=== PATIENT | female | born 1980 | race African-American/Black ===

== ENCOUNTER 2020-01-04 10:27 | Emergency (ER) | payer BC ==
[~2020-01-04 10:27] MED LIST: Iopamidol-370 76% 500 ML 1 ML ONE
[2020-01-04 11:36] LABS: Bacteria/HPF None Seen HPF (None Seen); Bilirubin Negative (Negative); Blood, Urine Negative (Negative); Clarity Clear (Clear); Glucose, Urine (Dipstick) Normal (Negative); Ketone, Urine Negative (Negative); Leukocyte Negative Leu/uL (Negative); Nitrite Negative (Negative); Protein, Urine (Dipstick) 30 mg/dL (Neg-Trace); RBC/HPF 0-3 HPF (0-3); Specific Gravity, Urine 1.031 (1.002-1.036); Squamous Epithelial 0-3 HPF (0-3); WBC/HPF 0-3 HPF (0-3)
[2020-01-04 11:37] LABS: Pregnancy Test - Urine (BHCG) Negative (Negative); Pregu Control Background? CLEAR/WHITE (CLR/WHITE); Pregu Control Bar Appear? YES (CONTROL BAR); Specific Gravity 1.031 (1.002-1.036)
[2020-01-04 11:37] LABS: #Lymphocytes 1.9 thou/uL (1.20-3.40); #Monocytes 0.6 thou/uL (0.11-0.59); #Neutrophils 12.8 thou/uL (1.40-6.50); %Basophils 0.2 % (0.0-1.0); %Eosinophils 0.1 % (0.0-10.0); %Lymphocytes 12.1 % (21.0-51.0); %Monocytes 4.2 % (0.0-10.0); %Neutrophils 83.5 % (42.0-75.0); Hemoglobin 11.8 g/dL (12.0-16.0); Mean Corpuscular HGB CONC 32.9 g/dL (32.0-36.0); Mean Corpuscular Hemoglobin 28.1 pg (27.0-31.0); Mean Corpuscular Volume 85.2 fL (78.0-98.0); Mean Platelet Volume 9.9 fL (7.4-10.4); Platelet Count 206 thou/uL (130-400); Red Blood Cell (RBC) Count 4.22 mill/uL (4.20-5.40); White Blood Cell (WBC) Count 15.3 thou/uL (4.8-10.8)
[2020-01-04 11:48] LABS: ALT (SGPT) 14 U/L (8-55); AST (SGOT) 19 U/L (5-34); Albumin 3.9 g/dL (3.5-5.0); Alkaline Phosphatase 67 U/L (40-110); Anion Gap 10 mmol/L (10-20); BUN (Urea Nitrogen) 9 mg/dL (7.0-18.7); Bilirubin, Total 0.6 mg/dL (0.2-1.2); Calc. Creatinine Clearance 0 mL/min (70-130); Calcium 9.2 mg/dL (7.8-10.44); Carbon Dioxide 25 mmol/L (22-29); Chloride 103 mmol/L (98-107); Estimated GFR-MDRD 82; Globulin 3.9 g/dL (2.4-3.5); Glucose 108 mg/dL (70-105); Lipase 5 U/L (8-78); Potassium 3.9 mmol/L (3.5-5.1); Protein, Total 7.8 g/dL (6.0-8.3); Sodium 134 mmol/L (136-145)
--- NOTE | 2020-01-04 12:04 | CT ---
CT abdomen and pelvis with IV contrast HISTORY: Abdominal pain. FINDINGS: The lung bases are clear. The liver, spleen, kidneys, adrenal glands, and pancreas have a n ormal CT appearance. Appendix is unremarkable. No evidence of bowel obstruction or inflammation. Fat protruding into an umbilical hernia is 3.0 cm greatest craniocaudal length. No evidence of compli cation or bowel content. The uterus has a lobulated heterogeneous density and measures up to 10.3 cm oblique width. Physiologi c amount of free fluid at the right adnexa. IMPRESSION : No acute abnormalities are demonstrated. Enlarged, heterogeneous uterus likely related to fibroid involvement. Non-complicated fat-containing umbilical hernia.
[2020-01-04] MEDS ORDERED: Mag-Al 1200 mg/1200 mg/30 ML UDCUP ONE (13:22)
[2020-01-04] MEDS ORDERED: Lidocaine Viscous Sol 2% 15 ml UD Cup ONE (13:22)
== END 2020-01-04 13:42 | disposition home or self-care (01) ==
LOC: ERS 10:27
DX: R10.84 Generalized abdominal pain (principal)
CPT/HCPCS: 74177; 80053; 81003; 81015; 81025; 83690; 85025; Q9967

== ENCOUNTER 2020-02-07 10:38 | Outpatient (CLI) | payer BC ==
--- NOTE | 2020-02-07 12:19 | ULT ---
RIGHT BREAST ULTRASOUND: HISTORY: Abnormal mammogram. FINDINGS: Correlation is made with the mammogram of 01/10/2020. Sonographic evaluation of the 12 o'clock position of the right breast demonstrates a well-circumscrib ed nonshadowing solid mass 7 cm from the nipple measuring 1.5 x 0.8 x 1.6 cm. This should be evaluat ed with biopsy. The right axilla demonstrates no abnormality. IMPRESSION: BIRADS category 4 - suspicious abnormality. Ultrasound-guided biopsy of the right breast mass is rec ommended. Discussed in person with the patient at 11:00 a.m. CODE CR POS: OFF
--- NOTE | 2020-02-07 14:34 | MMO ---
FILMS COMPARED: The present examination has been compared to a prior imaging study performed at [facility] on 02/07/2020. MAMMOGRAM FINDINGS: There is a mass with associated biopsy clip seen in the right breast at 12 o'clock. IMPRESSION: MASS IN THE RIGHT BREAST IS CONFIRMED UTILIZING POST PROCEDURE MAMMOGRAM. Reported by: SATHYA OH MD Electonically Signed: [id number]
--- NOTE | 2020-02-07 14:49 | ULT ---
ULTRASOUND GUIDED BIOPSY OF THE RIGHT BREAST: COMPARISON: 02/07/2020 at 10:54 AM. FINDINGS: Successful right breast biopsy with ultrasound guidance. A total of 3 14-gauge core biopsy samples we re obtained. Postbiopsy clip was placed. Post biopsy mammogram demonstrates post biopsy changes. Clip is in the appropriate position. TECHNIQUE: Consent obtained to perform an ultrasound-guided biopsy of the right breast. Right breast was prepped and draped in sterile fashion. 1% lidocaine, buffered with sodium bicarbonate was used for local anesthesia. Under ultrasound guidance, a 14-gauge biopsy needle was advanced. Pre- and postfiring aaron ges were obtained. A total of three 14-gauge core biopsy samples were obtained. Tissue was placed directly in formalin. Biopsy clip was placed. Postprocedure mammogram was performed. IMPRESSION: Successful right breast biopsy with ultrasound guidance. Final pathologic diagnosis is pending. Transcribed Date/Time: 02/07/2020 3:16 PM
== END 2020-02-07 10:39 | disposition home or self-care (01) ==
LOC: BICULT 10:38
PROVIDERS: ATTEND Student in an Organized Health Care Education/Training Program
DX: N63.11 Unspecified lump in the right breast, upper outer quadrant (principal); D24.1 Benign neoplasm of right breast
CPT/HCPCS: 19083; 88305; 88341; 88342